=== PATIENT | female | born 1960 | race American Indian/Alaskan Native ===

== ENCOUNTER 2017-08-26 10:33 | Emergency (ER) | payer OTHER ==
[~2017-08-26] VITALS: Ht 165.1 cm; Wt 59.0 kg
[~2017-08-26 10:33] MED LIST: ACET325 PO; DIVA250ER PO; DONE5 PO; DULO60 PO; FAMO20 PO; GABA400 PO; IBUP600 PO; LEVE500 PO; LISI20 PO; OLAN5 PO; PHENY100ER PO; PHENYTOIN SODI300 MG PO; THIA100 PO
[2017-08-26 10:50] LABS: Calcium, Ionized (POC) 1.14 mmol/L (1.10-1.46); Chloride (POC) 102 mmol/L (98-108); Creatinine (POC) 0.5 mg/dL (0.6-1.0); Glucose (ISTAT POC) 142 mg/dL (70-99); Hemoglobin (POC) 14.6 g/dL (12.0-16.0); Potassium (POC) 3.6 mmol/L (3.5-5.5); Sodium (POC) 141 mmol/L (135-148); Total CO2 (POC) 26 mmol/L (21-32)
== END 2017-08-26 12:40 | disposition home or self-care (01) ==
LOC: ER 10:33
PROVIDERS: Emergency Medicine
DX: G40.909 Epilepsy, unspecified, not intractable, without status epilepticus (principal); F17.210 Nicotine dependence, cigarettes, uncomplicated; G30.9 Alzheimer's disease, unspecified; F02.80 Dementia in other diseases classified elsewhere, unspecified severity, without behavioral disturbance, psychotic disturbance, mood disturbance, and anxiety; Z79.899 Other long term (current) drug therapy
CPT/HCPCS: 80047; 81000; 85014; 96360; 99284-25; J7030

== ENCOUNTER 2018-01-27 10:44 | Inpatient (IN) | payer OTHER ==
[~2018-01-27] VITALS: Ht 172.7 cm; Wt 46.4 kg
[2018-01-27 11:10] LABS: BASOPHILS ABSOLUTE AUTO 0.02 K/mm3 (0.00-0.23); BASOPHILS PERCENT AUTO 0 % (0-2); EOSINOPHILS ABSOLUTE AUTO 0.05 K/mm3 (0.00-0.68); EOSINOPHILS PERCENT AUTO 1 % (0-6); Hematocrit 38.3 % (33.0-51.0); Hemoglobin 12.9 g/dL (11.5-16.0); IMMATURE GRAN ABSOLUTE AUTO 0.03 K/mm3 (0.00-0.10); IMMATURE GRAN PERCENT AUTO 1 % (0-1); LYMPHOCYTES PERCENT AUTO 15 % (21-46); MONOCYTES ABSOLUTE AUTO 0.38 K/mm3 (0.16-1.47); MONOCYTES PERCENT AUTO 7 % (4-13); Mean Corpuscular HGB 33.8 pg (26.0-34.0); Mean Corpuscular HGB Conc 33.7 g/dL (31.5-36.5); Mean Corpuscular Volume 100 fL (80-100); Mean Platelet Volume 9.2 fL (9.1-12.4); NEUTROPHILS ABSOLUTE AUTO 3.96 K/mm3 (1.96-9.15); NEUTROPHILS PERCENT AUTO 75 % (41-73); Platelet Count 79 K/mm3 (150-400); RDW Standard Deviation 44.4 fL (35.1-46.3); Red Blood Cell Count 3.82 M/mm3 (3.80-5.20); White Blood Cell Count 5.24 K/mm3 (4.00-11.30)
[2018-01-27 11:19] LABS: International Normalized Ratio 1.14; Prothrombin Time Results 11.7 Sec (9.7-11.5)
[2018-01-27 11:29] LABS: CPK Creatine Kinase 110 U/L (26-193); Creatine Kinase MB Index 0.9 (0.0-4.0); Troponin I 0.194 ng/mL (0.000-0.040)
[2018-01-27 11:30] LABS: Alanine Aminotransfer (ALT/SGP 27 U/L (12-78); Albumin, Blood 3.1 g/dL (3.4-5.0); Albumin/Globulin Ratio 0.8 (0.8-1.8); Alk Phos 128 U/L (50-136); Anion Gap 11 mmol/L (6-16); Aspartate Aminotrans (AST/SGOT 39 U/L (12-37); Bilirubin, Total 0.4 mg/dL (0.1-1.0); Blood Urea Nitrogen 6 mg/dL (8-24); Bun/Creatinine Ratio 10.6 (12.0-20.0); CO2, Blood 25 mmol/L (21-32); Chloride, Blood 106 mmol/L (98-108); Creatinine, Blood 0.57 mg/dL (0.40-1.00); Globulin, Blood 4.1 g/dL (2.2-4.0); Glomerular Filtration Rate >60 (60-); Glucose, Blood 141 mg/dL (70-99); Potassium, Blood 3.7 mmol/L (3.5-5.5); Sodium, Blood 142 mmol/L (136-145); Total Protein, Blood 7.2 g/dL (6.4-8.2)
[2018-01-27 11:36] LABS: Dilantin (Phenytoin), Total 2.7 ug/mL (10.0-20.0)
[2018-01-27 11:50] LABS: Ethanol (Alcohol), Blood, Med <3 mg/dL
[2018-01-27 13:09] LABS: Source, Urine Clean Catch
[2018-01-27 13:18] LABS: Bilirubin, Urine Neg (Neg); Blood, Urine 1+ (Neg); Glucose Qualitative, Urine Neg (Neg); Ketones, Urine Neg (Neg); Leukocyte Esterase, Urine Neg (Neg); Nitrite, Urine Neg (Neg); Protein, Urine 2+ (Neg); Urobilinogen, Urine NORM (Normal)
[2018-01-27 13:41] LABS: U Amphetamine Screen Not Detected; U Barbituate Screen DETECTED; U Benzodiazapine Screen Not Detected; U Buprenorphine Screen Not Detected; U Cannabinoids Screen DETECTED; U Cocaine Screen Not Detected; U Methadone Screen Not Detected; U Methamphetamine Screen Not Detected; U Opiates Screen Not Detected; U Oxycodone Screen Not Detected; U Phencyclidine Screen Not Detected; U Propoxyphene Screen Not Detected
[2018-01-27 13:42] LABS: Appearance, Urine Clear (Clear); Color, Urine Yellow (P-Yellow)
[2018-01-27 13:44] LABS: Bacteria Not Seen /hpf; Squamous Epithelial Cells Few /hpf (Few); White Blood Cells, Urine Rare /hpf (0-5)
[2018-01-27 13:45] LABS: Hyaline Casts Rare /lpf (0-2)
[2018-01-27 15:33] LABS: Creatine Kinase MB 4.6 ng/mL (0.0-3.6); Creatine Kinase MB Index 1.3 (0.0-4.0)
[2018-01-27 15:41] LABS: Thyroid Stimulating Hormone 1.93 uIU/mL (0.360-4.800)
[2018-01-27 15:46] LABS: Troponin I 1.1 ng/mL (0.000-0.040)
[2018-01-27] MEDS ORDERED: DIVA125 PO (17:25)
[2018-01-27] MEDS ORDERED: DIVA500ER PO (17:27)
--- NOTE | 2018-01-27 19:57 | NUR ---
SHIFT SUMMARY: Pt arrived to room PCU 2 at around 1700. Pt was very tearful and fearful. Crying and asking for her son. Explained that he was just outside the room at that time. LS were clear. HR was reg. BT were positive. pulses palp. Pt C/O horrible NORWOOD, stomach ache and like she was going to throw up. Medicated with zofran at that time and IVF were hung. Pt and her sone were oriented to room and unit. Seizure pads were placed on bed and bed alarm on. Pt dowsing on and off. When awake she is crying and confused, difficult to calm. Pt also running a temp at arrival to room of 100.9. Had heat turned down and removed multiple blankets from bed. Pt continues to ask for a warm blanket, stating that "I'm cold". Pt was given tylenol in ER with will continue to monitor and treat temp. Report was given to night RN.
--- NOTE | 2018-01-27 20:03 | NUR ---
CARE ASSUMPTION PT ALERT TO SELF AND FAMILY, UNABLE TO STATE MONTH AND YEAR OR TELL ME WHAT HAPPENED. SHE STATES "IN THE HOSPITAL" WHEN ASKED IF SHE KNOWS WHERE SHE IS, BUT THEN MOMENTS LATER ASKS "WHERE AM I?" PT ALERT W/ CONFUSION. PT ABLE TO MOVE ALL EXTREMITIES, BILAT HAND INFORMATION ASSURANCE ENGINEER EQUAL, BUT PT HANDS SHAKING WHEN ASKED TO GRASP MY HANDS. PT TEMP 100.2 ON ASSESSMENT. TEMP TURNED DOWN IN ROOM AND PT WEARING SHEET ONLY. LUNG SOUNDS CLEAR ON L SIDE, COARSE ON R SIDE. SPO2 > 92% ON RA. MONITOR SHOWS NSR, HR 70'S. SIDE RAILS UP X2, SEIZURE PADS ON BED. PT ON BEDREST, USING BEDPAN. CALL LIGHT IN REACH. BED ALARM ON. WILL CONTINUE TO MONITOR AND PROVIDE CARE.
[2018-01-27 23:23] LABS: Creatine Kinase MB 6.5 ng/mL (0.0-3.6); Creatine Kinase MB Index 0.9 (0.0-4.0)
[2018-01-27 23:28] LABS: Troponin I 1.13 ng/mL (0.000-0.040)
--- NOTE | 2018-01-28 06:30 | NUR ---
SHIFT SUMMARY PT ORIENTED TO SELF AND FAMILY, IN AND OUT OF ORIENTATION TO SURROUNDINGS, UNAWARE OF DATE/TIME. PT VERY ANXIOUS AND TEARFUL T/O SHIFT W/ MOMENTS OF CALM AND SLEEP AFTER ATIVAN GIVEN PER EMAR. PT C/O FEELING HOT AND COLD T/O SHIFT, ASKING FOR BLANKETS, STATING STAFF NOT DOING ANYTHING FOR HER. PT REASSURED OF STAFF CARING FOR HER, AND EXPLAINED TO THE PT THE LACK OF EXTRA BLANKETS D/T HER HAVING AN ELEVATED TEMP. ELEVATED TEMP SUCCESSFULLY DECREASED W/ TYLENOL PER EMAR. PT THEN PROVIDED W/ EXTRA BLANKETS ONCE TEMP REDUCED. ONE EPISODE OF SEVERE CONFUSION, LOSS OF RECALL FOR WHAT WAS HAPPENING TO HER, AND HIGH EMOTIONS, PT STATED WANTING TO , SAYING SHE DIDN'T FEEL LIKE HERSELF ANYMORE. TIME SPENT DISCUSSING THIS W/ PT AND MATERIAL HANDLING SUPERVISOR CALLED INTO ROOM TO FURTHER ASSESS PT. PT REFUSED TO ANSWER ANY SUICIDAL IDEATION QUESTIONS. AFTER FUTHER TIME SPENT, PT BECAME CALM, CONVERSING WITH MATERIAL HANDLING SUPERVISOR, LAUGHING EVEN. WILL PASS THIS ON TO DAY SHIFT RN W/ INTENT TO FURTHER ASSESS AND RE-EVALUATE PT'S SI. OTHERWISE VSS. SEIZURE PADS REMAIN ON SIDE RAILS OF BED, WITH NO SEIZURE-LIKE ACTIVITY T/O SHIFT. BED ALARM ON. SBA TO BSC. WILL CONTINUE TO MONITOR AND PROVIDE CARE UNTIL REPORT OFF TO ONCOMING DAY SHIFT RN.
[2018-01-28 07:07] LABS: BASOPHILS ABSOLUTE AUTO 0.03 K/mm3 (0.00-0.23); BASOPHILS PERCENT AUTO 1 % (0-2); EOSINOPHILS ABSOLUTE AUTO 0.01 K/mm3 (0.00-0.68); EOSINOPHILS PERCENT AUTO 0 % (0-6); Hematocrit 35.1 % (33.0-51.0); Hemoglobin 11.7 g/dL (11.5-16.0); IMMATURE GRAN ABSOLUTE AUTO 0.03 K/mm3 (0.00-0.10); IMMATURE GRAN PERCENT AUTO 1 % (0-1); LYMPHOCYTES ABSOLUTE AUTO 1.88 K/mm3 (0.84-5.20); LYMPHOCYTES PERCENT AUTO 29 % (21-46); MONOCYTES ABSOLUTE AUTO 0.56 K/mm3 (0.16-1.47); MONOCYTES PERCENT AUTO 9 % (4-13); Mean Corpuscular HGB Conc 33.3 g/dL (31.5-36.5); Mean Corpuscular Volume 99 fL (80-100); Mean Platelet Volume 9.2 fL (9.1-12.4); NEUTROPHILS ABSOLUTE AUTO 4.09 K/mm3 (1.96-9.15); NEUTROPHILS PERCENT AUTO 62 % (41-73); Platelet Count 89 K/mm3 (150-400); RDW Coefficient Variation 11.9 % (11.7-14.2); RDW Standard Deviation 43.5 fL (35.1-46.3); Red Blood Cell Count 3.55 M/mm3 (3.80-5.20)
[2018-01-28 07:23] LABS: Alanine Aminotransfer (ALT/SGP 25 U/L (12-78); Albumin, Blood 2.9 g/dL (3.4-5.0); Albumin/Globulin Ratio 0.8 (0.8-1.8); Alk Phos 81 U/L (50-136); Anion Gap 6 mmol/L (6-16); Aspartate Aminotrans (AST/SGOT 46 U/L (12-37); Bilirubin, Total 0.6 mg/dL (0.1-1.0); Blood Urea Nitrogen 7 mg/dL (8-24); Bun/Creatinine Ratio 11.6 (12.0-20.0); CO2, Blood 27 mmol/L (21-32); Calcium, Blood 8.1 mg/dL (8.5-10.1); Chloride, Blood 110 mmol/L (98-108); Creatinine, Blood 0.61 mg/dL (0.40-1.00); Globulin, Blood 3.6 g/dL (2.2-4.0); Glomerular Filtration Rate >60 (60-); Glucose, Blood 87 mg/dL (70-99); Potassium, Blood 4.1 mmol/L (3.5-5.5); Sodium, Blood 143 mmol/L (136-145); Total Protein, Blood 6.5 g/dL (6.4-8.2)
[2018-01-28 07:26] LABS: Creatine Kinase MB 4.9 ng/mL (0.0-3.6); Creatine Kinase MB Index 0.9 (0.0-4.0)
[2018-01-28 07:44] LABS: Troponin I 1.24 ng/mL (0.000-0.040)
--- NOTE | 2018-01-28 18:42 | NUR ---
END OF SHIFT PT HAS HAD NO CHANGES TO THE ASSESSENT, VSS, PT HAS NO PAIN AT THIS TIME, PT HAS HAD MOOD SWINGS WITH MOMENTS OF CLEARITY, PT HAS BEEN EDUCATED TO THE PLAN AND FAMILY NOTIFIED OF POSSIBLE DC IN THE MORNING
--- NOTE | 2018-01-29 05:34 | NUR ---
END OF SHIFT SUMMARY: PATIENT MUCH MORE PLEASANT THIS SHIFT, USING CALL LIGHT APPROPRIATLY AND COOPERATIVE WITH CARE. X2 EPISODES OF TEARFULNESS WHEN SHE AWOKE AND WAS COLD AND MOIST D/T SWEATING, AFEBRILE AND ALL OTHER VSS FOR ENTIRE SHIFT. NO SEIZURE ACTIVITY NOTED AND POST ICTAL CONFUSION APPEARS TO BE IMPROVING, NO MORE LEFT SIDED WEAKNESS PER PATIENT. CONTINUOUS NORWOOD NOTED AND TREATED PER MD ORDERS. NO OTHER ISSUES NOTED, CALL LIGHT WIHTIN REACH, BED LOW AND LOCKED WITH BED EXIT ALARM ON. ASSESSMENT, MONITORING AND TREATMENTS IMPLEMENTED PER MD ORDERS AND SCOPE OF PRACTICE.
--- NOTE | 2018-01-29 09:28 | NUR ---
Update: Rudi in HC called to notify that the HC would be unable to complete stress test today d/t all slots being full. Notified Dr. Dai, and he stated that it is okay to complete stress test tomorrow. HC scheduling stress test for tomorrow 01/30/18.
--- NOTE | 2018-01-29 10:31 | NUR ---
Assumed Care: Assumed care of pt at approx 0700. VSS. In no apparent sign of distress. Pt is A&Ox4 at this time, but shift coordinator RN reports that pt wakes up disoriented after sleeping. Pt was awake and appropriate upon entering room. C/o of mild headache and pt recently received PO tylenol. Pt unable to recall events of being a missing person recently or seizure. Pt states that she does not have a history of seizure or HTN. Held PO atenolol this AM d/t HR in the 50's. Denies any CP. Bed alarm on. Lungs clear and breathing e/u on RA. Pt states that she was not feeling very good this AM and had mild nausea. Received shower and states that she is now feeling much better. Pt currently resting in bed with call light within reach. Denies any further questions, complaints or requests at this time. Will continue to monitor. Transfer: Called report to receiving YESI Brandon on surgical floor. Pt transferred to room 214 at 1020. VSS. In no apparent sign of distress. Pt educated on transfer and denies any questions or complaints.
--- NOTE | 2018-01-29 10:39 | NUR ---
pt arrived to room 214 from pcu pt oriented to room req we turn the heat to 75 stated she has been getting hot and cold currently not sweating but cold no shivering noted.
--- NOTE | 2018-01-29 14:41 | NUR ---
Daniella in bed resting reports doing much better ,encouraged pt and prayed for her.
--- NOTE | 2018-01-29 16:13 | NUR ---
DR MOY CALLED IVF SL PT EATING WELL AND VOIDING ASSISTED TO BATHROOM EARLIER TO VOID WITHOUT DIFFICULTY PT STATED HER STRENGTH IS BETTER
--- NOTE | 2018-01-29 17:38 | NUR ---
PT EATING DINNER PT'S SON AT BEDSIDE DISCUSSED HER MED GIVEN IN HOSP
--- NOTE | 2018-01-30 06:07 | NUR ---
SHIFT SUMMARY: PT HAS SLEPT MOST OF SHIFT. OCCASIONALLY WAKES UP DISORIENTED AND TEARFUL. REPORTS NOT KNOWING SURROUNDINGS, DATE/TIME AND WHAT HAS HAPPENED. WAKES UP DIAPHORETIC AND STATES FEELING COLD. AFEBRILE THROUGHOUT SHIFT. NO SEIZURE ACTIVITY NOTED. SEIZURE PRECAUTIONS IN PLACE. BED ALARM ON FOR SAFETY. SBA TO BATHROOM. SALINE LOCKED.
--- NOTE | 2018-01-30 12:59 | NUR ---
Call to Dr. Huddleston regarding pending discharge and received orders; he states that due to the pt's mitral regurgitation, as well as past non-compliance issues, he would like to have a RAJESH done as an inpatient. Therefore, the discharge will be on hold until RAJESH is completed. This was communicated to the pt and to her son, Filiberto, who is here at this time.
--- NOTE | 2018-01-30 18:23 | NUR ---
This afternoon the pt reports that she has no headache, and that her upper abdominal pain is also better. She has had a decent appetite, mostly for toast and juice. Stress test was done. Her son Quan was called this evening to let him know that the ribbon inker is planning to do the RAJESH on Thursday, so the pt will be staying over the weekend. The pt is cooperative, upset at times when she awakens and cannot remember where she is or what is going on, but she responds well to reassurance and explainations and reorientation. Sinus bradycardia/ normal sinus rhythm per night monitor.
--- NOTE | 2018-01-31 06:10 | NUR ---
SHIFT SUMMARY PT A&OX4 FOR MOST OF SHIFT. PT WOKE IN EARLY AM UNSURE OF LOCATION AND EVENT BUT RECOGNIZE SHE WAS IN A HOSPITAL AND COULD REMEMBER VISITORS FROM THE PRIOR EVENING AND REORIENTED. PT REFUSED SCD'S EDUCATION ON BLOOD CLOT PREVENTION PROVIDED BY RN AND SUPERINTENDENT WAREHOUSE. PT DENIED PAIN, NAUSEA, CP AND SOB DURING SHIFT. PT UP TO TOILET, VOIDING WELL. TOLERATING PO INTAKE. BED ALARM AND SIDE RAILS FOR SAFETY. TELEMETRY IN PLACE; SB PER COMPUTER SYSTEMS ARCHITECT. CALL LIGHT IN REACH. WCTM UNTIL REPORT TO DAY SHIFT RN.
--- NOTE | 2018-01-31 07:59 | NUR ---
PT REPORTS AWARE IN HOSPITAL "JUST NOT SURE WHY, WHEN I CAME IN HERE, OR EVEN WHERE I LIVE". PT REPORTS DRINKING LOTS OF WATER, REPORTS EPIGASTRIC PAIN, THEN BREAKFEAST. REPORTS PASSING LOTS OF GAS.
--- NOTE | 2018-01-31 08:28 | NUR ---
DISCUSSED PT'S STATUS WITH DR MOY.
--- NOTE | 2018-01-31 12:53 | NUR ---
NEURO CHECK REMAIN SAME PREVIOUS NOTE.
--- NOTE | 2018-01-31 13:56 | NUR ---
FAMILY/FRIEND IN ROOM.
--- NOTE | 2018-01-31 16:27 | NUR ---
SHIFT SUMMARY PT EATING AND DRINKING. VOIDING. PT FAMILY/FRIEND EARLIER TODAY AND VISITED WITH PT. PT NEURO CHECKS REMAIN SAME (SEE N.N.). PT BEEN ASSISTED WITH ADL'S PRN. PT MOVING SELF WELL.
--- NOTE | 2018-01-31 17:18 | NUR ---
assumed care of patient at this time.
--- NOTE | 2018-01-31 17:25 | NUR ---
REPORT GIVEN TO OTHER YESI Ramos WHO IS TAKING OVER CARE AT THIS TIME.
[2018-02-01 04:40] LABS: Hematocrit 36.1 % (33.0-51.0); Hemoglobin 12.6 g/dL (11.5-16.0); Mean Corpuscular HGB Conc 34.9 g/dL (31.5-36.5); Mean Corpuscular Volume 97 fL (80-100); Mean Platelet Volume 9.7 fL (9.1-12.4); Platelet Count 74 K/mm3 (150-400); RDW Coefficient Variation 11.7 % (11.7-14.2); RDW Standard Deviation 41.3 fL (35.1-46.3); Red Blood Cell Count 3.71 M/mm3 (3.80-5.20); White Blood Cell Count 3.34 K/mm3 (4.00-11.30)
--- NOTE | 2018-02-01 07:25 | NUR ---
PATIENT TO [facility] FOR [facility] AT THIS TIME.
--- NOTE | 2018-02-01 07:47 | NUR ---
SHIFT SUMMARY PT ALERT T/O SHIFT. PT A&O X4 AT START OF SHIFT. PT CONTINUED TO WAKE DISORIENTED T/O NIGHT, SOMTIMES CRYING; REORIENTED WELL WITH CUES. PT UP TO TOILET. REFUSED SCD'S TO BLE'S. NPO POST MIDNIGHT. LS CLEAR. PT DENIES SOB AND CP; TELEMETRY IN PLACE, SB PER VISUAL DISPLAY MANAGER. REPORT GIVEN TO DAY SHIFT RN.
--- NOTE | 2018-02-01 10:00 | NUR ---
PATIENT RETURNED TO ROOM FROM RAJESH. NO NEW ORDERS. F/U WITH INDIVIDUAL SMALL GROUP INSTRUCTOR OP. DR MOY INFORMED.
--- NOTE | 2018-02-01 12:42 | NUR ---
PATIENT D/C'D HOME AT THIS TIME W/SON; BOTH STATE UNDERSTANDING OF MEDS, F/U APPTS W/ PCP, CARDIOLOGY, NEUROLOGY, ETC. NO ACUTE CHANGES OR C/O.
--- NOTE | 2018-02-01 14:52 | NUR ---
Met pt sitting up in his bed dylan Saldana , pt. reportsmdoing muchn better and may go home today or mago prayed for the pt.
== END 2018-02-01 12:42 | disposition home health service (06) | DRG 101 ==
LOC: ER 10:44 → PCU 10:45 → SURS 01-29 10:27
PROVIDERS: Emergency Medicine; Internal Medicine; ADMIT Family Medicine
PROC: 4A02XM4 Measurement of Cardiac Total Activity, External Approach (ICD-10-PCS; principal; 2018-01-28)
PROC: B246ZZ4 Ultrasonography of Right and Left Heart, Transesophageal (ICD-10-PCS; 2018-01-28)
DX: G40.901 Epilepsy, unspecified, not intractable, with status epilepticus (principal); E87.2 Acidosis; R47.01 Aphasia; D61.818 Other pancytopenia; F17.210 Nicotine dependence, cigarettes, uncomplicated; F19.10 Other psychoactive substance abuse, uncomplicated; G83.84 Todd's paralysis (postepileptic); W18.30XA Fall on same level, unspecified, initial encounter; Z91.14 Patient's other noncompliance with medication regimen; F03.90 Unspecified dementia, unspecified severity, without behavioral disturbance, psychotic disturbance, mood disturbance, and anxiety; I34.0 Nonrheumatic mitral (valve) insufficiency
CPT/HCPCS: 36415; 70450; 70496; 71046; 78452; 80053; 80185; 81001; 82550; 82553; 83605; 83735; 84443; 84484; 85025; 85027; 85610; 87040; 93005; 93010; 93017; 93306; 93312; 93325; 96361; 96365; 96375; 99285-25; A9500; G0378; G0480; J0706; J1165; J2060; J2250; J2405; J2785; J3010; J7030; Q9967

== ENCOUNTER 2018-02-11 17:20 | Observation (INO) | payer OTHER ==
[~2018-02-11] VITALS: Ht 160 cm; Wt 48.1 kg
[~2018-02-11 17:20] MED LIST changes: +DIVA125 PO; +DIVA500ER PO
[2018-02-11 18:29] LABS: Source, Urine Clean Catch
[2018-02-11 18:30] LABS: BASOPHILS ABSOLUTE AUTO 0.04 K/mm3 (0.00-0.23); BASOPHILS PERCENT AUTO 1 % (0-2); EOSINOPHILS PERCENT AUTO 1 % (0-6); Hematocrit 44.4 % (33.0-51.0); Hemoglobin 15.2 g/dL (11.5-16.0); IMMATURE GRAN ABSOLUTE AUTO 0.03 K/mm3 (0.00-0.10); IMMATURE GRAN PERCENT AUTO 0 % (0-1); LYMPHOCYTES ABSOLUTE AUTO 2.54 K/mm3 (0.84-5.20); LYMPHOCYTES PERCENT AUTO 37 % (21-46); MONOCYTES PERCENT AUTO 9 % (4-13); Mean Corpuscular HGB 33.4 pg (26.0-34.0); Mean Corpuscular HGB Conc 34.2 g/dL (31.5-36.5); Mean Corpuscular Volume 98 fL (80-100); Mean Platelet Volume 8.6 fL (9.1-12.4); NEUTROPHILS ABSOLUTE AUTO 3.65 K/mm3 (1.96-9.15); NEUTROPHILS PERCENT AUTO 53 % (41-73); Platelet Count 109 K/mm3 (150-400); RDW Coefficient Variation 11.6 % (11.7-14.2); RDW Standard Deviation 42.2 fL (35.1-46.3); Red Blood Cell Count 4.55 M/mm3 (3.80-5.20); White Blood Cell Count 6.96 K/mm3 (4.00-11.30)
[2018-02-11 18:57] LABS: U Amphetamine Screen Not Detected; U Barbituate Screen DETECTED; U Benzodiazapine Screen Not Detected; U Buprenorphine Screen Not Detected; U Cannabinoids Screen DETECTED; U Cocaine Screen Not Detected; U Methadone Screen Not Detected; U Methamphetamine Screen Not Detected; U Opiates Screen Not Detected; U Oxycodone Screen Not Detected; U Phencyclidine Screen Not Detected; U Propoxyphene Screen Not Detected
[2018-02-11 19:06] LABS: Bilirubin, Urine Neg (Neg); Blood, Urine 2+ (Neg); Glucose Qualitative, Urine Neg (Neg); Ketones, Urine Neg (Neg); Leukocyte Esterase, Urine 1+ (Neg); Nitrite, Urine Neg (Neg); Protein, Urine 2+ (Neg); Urobilinogen, Urine 2+ (Normal)
[2018-02-11 19:08] LABS: Alanine Aminotransfer (ALT/SGP 39 U/L (12-78); Albumin, Blood 3.9 g/dL (3.4-5.0); Albumin/Globulin Ratio 0.9 (0.8-1.8); Alk Phos 118 U/L (50-136); Anion Gap 8 mmol/L (6-16); Aspartate Aminotrans (AST/SGOT 43 U/L (12-37); Bilirubin, Total 0.4 mg/dL (0.1-1.0); Blood Urea Nitrogen 7 mg/dL (8-24); CO2, Blood 26 mmol/L (21-32); Calcium, Blood 8.8 mg/dL (8.5-10.1); Chloride, Blood 101 mmol/L (98-108); Creatinine, Blood 0.64 mg/dL (0.40-1.00); Ethanol (Alcohol), Blood, Med <3 mg/dL; Free Thyroxine 0.86 ng/dL (0.70-1.60); Globulin, Blood 4.5 g/dL (2.2-4.0); Glomerular Filtration Rate >60 (60-); Glucose, Blood 94 mg/dL (70-99); Potassium, Blood 4.3 mmol/L (3.5-5.5); Salicylate 1.9 mg/dL (2.8-20.0); Sodium, Blood 135 mmol/L (136-145); Total Protein, Blood 8.4 g/dL (6.4-8.2)
[2018-02-11 19:13] LABS: Acetaminophen, Random <2.0 ug/mL (10.0-30.0)
[2018-02-11 19:20] LABS: Appearance, Urine Clear (Clear); Color, Urine Yellow (P-Yellow)
[2018-02-11 19:23] LABS: Bacteria Few /hpf; Squamous Epithelial Cells Few /hpf (Few)
[2018-02-11 20:59] LABS: Dilantin (Phenytoin), Total 6.9 ug/mL (10.0-20.0); Valproic Acid 67.9 ug/mL (50.0-100.0)
== END 2018-02-12 16:46 | disposition home or self-care (01) ==
LOC: ER 17:20 → EOR 17:21
PROVIDERS: ADMIT Emergency Medicine
DX: R45.851 Suicidal ideations (principal); F32.9 Major depressive disorder, single episode, unspecified; F17.210 Nicotine dependence, cigarettes, uncomplicated; F10.10 Alcohol abuse, uncomplicated; Z79.899 Other long term (current) drug therapy
CPT/HCPCS: 36415; 80053; 80164; 80185; 81001; 81025; 84439; 84443; 85025; 87086; 99285; G0378; G0480

== ENCOUNTER 2018-03-03 13:26 | Observation (INO) | payer OTHER ==
[~2018-03-03] VITALS: Ht 160 cm; Wt 54.4 kg
[2018-03-03] MEDS ORDERED: TRAZ50 PO (14:42)
[2018-03-03 15:02] LABS: Source, Urine Clean Catch
[2018-03-03 15:02] LABS: BASOPHILS ABSOLUTE AUTO 0.03 K/mm3 (0.00-0.23); BASOPHILS PERCENT AUTO 1 % (0-2); EOSINOPHILS ABSOLUTE AUTO 0.05 K/mm3 (0.00-0.68); EOSINOPHILS PERCENT AUTO 1 % (0-6); Hematocrit 39.7 % (33.0-51.0); Hemoglobin 13.5 g/dL (11.5-16.0); IMMATURE GRAN ABSOLUTE AUTO 0.02 K/mm3 (0.00-0.10); IMMATURE GRAN PERCENT AUTO 0 % (0-1); LYMPHOCYTES ABSOLUTE AUTO 1.37 K/mm3 (0.84-5.20); LYMPHOCYTES PERCENT AUTO 21 % (21-46); MONOCYTES ABSOLUTE AUTO 0.49 K/mm3 (0.16-1.47); MONOCYTES PERCENT AUTO 8 % (4-13); Mean Corpuscular HGB 32.5 pg (26.0-34.0); Mean Corpuscular Volume 96 fL (80-100); NEUTROPHILS ABSOLUTE AUTO 4.46 K/mm3 (1.96-9.15); NEUTROPHILS PERCENT AUTO 70 % (41-73); Platelet Count 104 K/mm3 (150-400); RDW Coefficient Variation 11.6 % (11.7-14.2); Red Blood Cell Count 4.15 M/mm3 (3.80-5.20); White Blood Cell Count 6.42 K/mm3 (4.00-11.30)
[2018-03-03 15:06] LABS: Blood, Urine 2+ (Neg); Glucose Qualitative, Urine Neg (Neg); Ketones, Urine 2+ (Neg); Leukocyte Esterase, Urine 1+ (Neg); Nitrite, Urine Neg (Neg); Protein, Urine 2+ (Neg); Specific Gravity, Urine 1.015 (1.003-1.022); Urobilinogen, Urine 3+ (Normal)
[2018-03-03 15:16] LABS: Alanine Aminotransfer (ALT/SGP 34 U/L (12-78); Albumin, Blood 3.6 g/dL (3.4-5.0); Albumin/Globulin Ratio 0.9 (0.8-1.8); Alk Phos 109 U/L (50-136); Anion Gap 7 mmol/L (6-16); Aspartate Aminotrans (AST/SGOT 45 U/L (12-37); Bilirubin, Total 0.6 mg/dL (0.1-1.0); Blood Urea Nitrogen 10 mg/dL (8-24); Bun/Creatinine Ratio 15.8 (12.0-20.0); CO2, Blood 29 mmol/L (21-32); Calcium, Blood 8.5 mg/dL (8.5-10.1); Chloride, Blood 105 mmol/L (98-108); Creatinine, Blood 0.63 mg/dL (0.40-1.00); Ethanol (Alcohol), Blood, Med <3 mg/dL; Globulin, Blood 4.2 g/dL (2.2-4.0); Glomerular Filtration Rate >60 (60-); Glucose, Blood 95 mg/dL (70-99); Potassium, Blood 3.7 mmol/L (3.5-5.5); Sodium, Blood 141 mmol/L (136-145); Total Protein, Blood 7.8 g/dL (6.4-8.2)
[2018-03-03 15:18] LABS: U Amphetamine Screen Not Detected; U Barbituate Screen DETECTED; U Benzodiazapine Screen Not Detected; U Buprenorphine Screen Not Detected; U Cannabinoids Screen DETECTED; U Cocaine Screen Not Detected; U Methadone Screen Not Detected; U Methamphetamine Screen Not Detected; U Opiates Screen Not Detected; U Oxycodone Screen Not Detected; U Phencyclidine Screen Not Detected; U Propoxyphene Screen Not Detected
[2018-03-03 15:21] LABS: Thyroid Stimulating Hormone 0.548 uIU/mL (0.360-4.800)
[2018-03-03 15:34] LABS: Appearance, Urine Hazy (Clear); Bilirubin, Urine 1+ (Neg); Color, Urine Amber (P-Yellow)
[2018-03-03 15:35] LABS: White Blood Cells, Urine 0-2 /hpf (0-5)
[2018-03-03 15:36] LABS: Bacteria Few /hpf; Squamous Epithelial Cells Rare /hpf (Few)
[2018-03-03 15:37] LABS: Mucus Mod ({null, 0-Heavy})
[2018-03-03 16:04] LABS: Dilantin (Phenytoin), Total 7.1 ug/mL (10.0-20.0); Valproic Acid 93.1 ug/mL (50.0-100.0)
[2018-03-05 19:21] LABS: Valproic Acid 65.8 ug/mL (50.0-100.0)
== END 2018-03-07 13:59 | disposition home or self-care (01) ==
LOC: ER 13:26 → EOR 13:27
PROVIDERS: Psychiatry & Neurology Psychiatry; ADMIT Emergency Medicine
DX: F32.9 Major depressive disorder, single episode, unspecified (principal); F41.9 Anxiety disorder, unspecified; F03.90 Unspecified dementia, unspecified severity, without behavioral disturbance, psychotic disturbance, mood disturbance, and anxiety; F12.90 Cannabis use, unspecified, uncomplicated; F17.210 Nicotine dependence, cigarettes, uncomplicated; Z79.899 Other long term (current) drug therapy
CPT/HCPCS: 36415; 80053; 80164; 80185; 81001; 84443; 85025; 87086; 99285; G0378; G0480

== ENCOUNTER 2018-04-30 16:26 | Inpatient (IN) | payer OTHER ==
[~2018-04-30] VITALS: Ht 157.5 cm; Wt 50.1 kg
[~2018-04-30 16:26] MED LIST changes: +TRAZ50 PO
[2018-04-30 17:47] LABS: BASOPHILS ABSOLUTE AUTO 0.02 K/mm3 (0.00-0.23); BASOPHILS PERCENT AUTO 0 % (0-2); EOSINOPHILS ABSOLUTE AUTO 0.05 K/mm3 (0.00-0.68); EOSINOPHILS PERCENT AUTO 1 % (0-6); Hemoglobin 15.9 g/dL (11.5-16.0); IMMATURE GRAN ABSOLUTE AUTO 0.05 K/mm3 (0.00-0.10); IMMATURE GRAN PERCENT AUTO 1 % (0-1); LYMPHOCYTES ABSOLUTE AUTO 1.97 K/mm3 (0.84-5.20); LYMPHOCYTES PERCENT AUTO 19 % (21-46); MONOCYTES ABSOLUTE AUTO 1.04 K/mm3 (0.16-1.47); MONOCYTES PERCENT AUTO 10 % (4-13); Mean Corpuscular HGB 32.6 pg (26.0-34.0); Mean Corpuscular HGB Conc 35.3 g/dL (31.5-36.5); Mean Corpuscular Volume 92 fL (80-100); Mean Platelet Volume 9.2 fL (9.1-12.4); NEUTROPHILS ABSOLUTE AUTO 7.09 K/mm3 (1.96-9.15); NEUTROPHILS PERCENT AUTO 69 % (41-73); Platelet Count 104 K/mm3 (150-400); RDW Coefficient Variation 12.1 % (11.7-14.2); RDW Standard Deviation 41.4 fL (35.1-46.3); Red Blood Cell Count 4.88 M/mm3 (3.80-5.20); White Blood Cell Count 10.22 K/mm3 (4.00-11.30)
[2018-04-30 18:13] LABS: Alanine Aminotransfer (ALT/SGP 30 U/L (12-78); Albumin, Blood 3.8 g/dL (3.4-5.0); Albumin/Globulin Ratio 0.8 (0.8-1.8); Alk Phos 131 U/L (50-136); Anion Gap 8 mmol/L (6-16); Aspartate Aminotrans (AST/SGOT 21 U/L (12-37); Blood Urea Nitrogen 13 mg/dL (8-24); CO2, Blood 26 mmol/L (21-32); Calcium, Blood 9.1 mg/dL (8.5-10.1); Chloride, Blood 104 mmol/L (98-108); Creatinine, Blood 0.47 mg/dL (0.40-1.00); Globulin, Blood 4.9 g/dL (2.2-4.0); Glomerular Filtration Rate >60 (60-); Glucose, Blood 103 mg/dL (70-99); Potassium, Blood 3.8 mmol/L (3.5-5.5); Sodium, Blood 138 mmol/L (136-145); Total Protein, Blood 8.7 g/dL (6.4-8.2); Troponin I <0.015 ng/mL (0.000-0.040)
--- NOTE | 2018-05-01 08:39 | NUR ---
[place]
--- NOTE | 2018-05-01 08:58 | NUR ---
05/01/18 0858 Destinee Garcia PT BROUGHT IN TO PACU TO MEET WITH AND DR. FERRARI. VSS. LUNGS COARSE THROUGHOUT AND PT COUGHING UP THICK GREEN MUCUS. PT ENCOURAGED TO DEEP BREATH AND COUGH. BREATHING TREATMENT GIVEN TO PT PER DR. TALAMANTES.
--- NOTE | 2018-05-01 11:45 | NUR ---
pt arrived back to room 224 from pacu pt reports pain 6/10 cl given pt stated pain is 6/10 mild nausea offered nausea meds pt declined will give po pain meds if pt acllie coates pt has gauze to abd all but one are dry the rlq is sat sang drainage pt asked if her sister has called
--- NOTE | 2018-05-01 14:36 | NUR ---
pt son by to see pt asked if it was ok if got her lunch pt did ok on cl no nausea
--- NOTE | 2018-05-01 17:44 | NUR ---
PT EATING DINNER STATED PAIN IS BACK UP TO 6/10 PO NORCO GIVEN
--- NOTE | 2018-05-01 20:24 | NUR ---
POD 0 S/P LAP LYNNE. PT DOING VERY WELL. HAS BEEN UP AMBULATING IN HALLWAY. PAIN IS TOLERBLE, NO N/V AND TOLERATING PO. STERI STRIPS IN PLACE AND DRY DRAINAGE NOTED TO THE RIGHT LOWER QUAD GAUZE.
--- NOTE | 2018-05-02 01:17 | NUR ---
PT WAS CRYING IN ROOM C/O PAIN. DRESSING LOOKS THEM SAME, ABD IS SOFT. STATES STARTING TO PASS FLATUS. MEDICATED FOR PAIN AND EDUCATED RE INCREASING MOBILITY.
[2018-05-02 04:17] LABS: BASOPHILS ABSOLUTE AUTO 0.02 K/mm3 (0.00-0.23); BASOPHILS PERCENT AUTO 0 % (0-2); EOSINOPHILS ABSOLUTE AUTO 0.14 K/mm3 (0.00-0.68); EOSINOPHILS PERCENT AUTO 2 % (0-6); Hematocrit 36.2 % (33.0-51.0); Hemoglobin 12.4 g/dL (11.5-16.0); IMMATURE GRAN ABSOLUTE AUTO 0.02 K/mm3 (0.00-0.10); IMMATURE GRAN PERCENT AUTO 0 % (0-1); LYMPHOCYTES PERCENT AUTO 25 % (21-46); MONOCYTES ABSOLUTE AUTO 0.57 K/mm3 (0.16-1.47); MONOCYTES PERCENT AUTO 8 % (4-13); Mean Corpuscular HGB 32.3 pg (26.0-34.0); Mean Corpuscular HGB Conc 34.3 g/dL (31.5-36.5); Mean Corpuscular Volume 94 fL (80-100); Mean Platelet Volume 9.4 fL (9.1-12.4); NEUTROPHILS ABSOLUTE AUTO 4.54 K/mm3 (1.96-9.15); NEUTROPHILS PERCENT AUTO 64 % (41-73); Platelet Count 94 K/mm3 (150-400); RDW Standard Deviation 41.8 fL (35.1-46.3); Red Blood Cell Count 3.84 M/mm3 (3.80-5.20); White Blood Cell Count 7.09 K/mm3 (4.00-11.30)
--- NOTE | 2018-05-02 05:21 | NUR ---
POD 1 S/P LAP LYNNE. PT DID HAVE SOME BREAKTHROUGH PAIN DURING SHIFT. BUT THIS MORNING IS DOING MUCH BETTER. HAS ALREADY BEEN AMBULATING IN THE HALLWAYS. STATES PASSING FLATUS AND HAS BEEN TOLERATING PO. PLAN FOR DC HOME TODAY. CALL LIGHT WITHIN REACH AND WILL REPORT OFF TO NEXT SHIFT.
[2018-05-02 13:05] LABS: Alanine Aminotransfer (ALT/SGP 36 U/L (12-78); Albumin/Globulin Ratio 0.8 (0.8-1.8); Alk Phos 140 U/L (50-136); Anion Gap 5 mmol/L (6-16); Aspartate Aminotrans (AST/SGOT 60 U/L (12-37); Bilirubin, Total 0.7 mg/dL (0.1-1.0); Blood Urea Nitrogen 6 mg/dL (8-24); Bun/Creatinine Ratio 15.2 (12.0-20.0); CO2, Blood 30 mmol/L (21-32); Calcium, Blood 8.5 mg/dL (8.5-10.1); Chloride, Blood 103 mmol/L (98-108); Creatinine, Blood 0.39 mg/dL (0.40-1.00); Globulin, Blood 3.9 g/dL (2.2-4.0); Glomerular Filtration Rate >60 (60-); Glucose, Blood 98 mg/dL (70-99); Sodium, Blood 138 mmol/L (136-145); Total Protein, Blood 6.9 g/dL (6.4-8.2)
[2018-05-02] MEDS ORDERED: HYDR1TAB94 PO (15:01)
--- NOTE | 2018-05-02 15:19 | NUR ---
DC'D DC'D IV, CATHETER INTACT. REVIEWED DC PAPERWORK W/PT AND SISTER. VERBALIZED UNDERSTANDING. PT LEFT UNIT IN WC W/POSSESSIONS AND DC PAPERWORK IN HAND ACCOMPANIED BY SISTER.
== END 2018-05-02 15:24 | disposition home or self-care (01) | DRG 419 ==
LOC: ER 16:26 → SURS 16:27
PROVIDERS: Physician Assistant; ADMIT Surgery
PROC: 0FT44ZZ Resection of Gallbladder, Percutaneous Endoscopic Approach (ICD-10-PCS; principal; 2018-04-30)
PROC: 0FD Hepatobiliary System and Pancreas, Extraction (ICD-10-PCS; 2018-04-30)
PROC: BF101ZZ Fluoroscopy of Bile Ducts using Low Osmolar Contrast (ICD-10-PCS; 2018-04-30)
DX: K80.00 Calculus of gallbladder with acute cholecystitis without obstruction (principal); K76.89 Other specified diseases of liver; G30.9 Alzheimer's disease, unspecified; F02.80 Dementia in other diseases classified elsewhere, unspecified severity, without behavioral disturbance, psychotic disturbance, mood disturbance, and anxiety; F17.210 Nicotine dependence, cigarettes, uncomplicated; I10 Essential (primary) hypertension; F31.9 Bipolar disorder, unspecified; G40.901 Epilepsy, unspecified, not intractable, with status epilepticus; F10.11 Alcohol abuse, in remission; F19.11 Other psychoactive substance abuse, in remission; Z79.899 Other long term (current) drug therapy
CPT/HCPCS: 36415; 71046; 74177; 74300; 80053; 83690; 84484; 85025; 88304; 88307; 88313; 93005; 93010; 96361; 96374-59; 96375; 99285-25; A9270-GY; C1729; G0480; J0295; J0690; J1100; J1170; J1885; J2250; J2405; J3010; J7120; Q9967

== ENCOUNTER 2018-05-12 15:50 | Observation (INO) | payer OTHER ==
[~2018-05-12] VITALS: Ht 152.4 cm; Wt 49.0 kg
[~2018-05-12 15:50] MED LIST changes: +HYDR1TAB94 PO
[2018-05-12 16:22] LABS: BASOPHILS ABSOLUTE AUTO 0.04 K/mm3 (0.00-0.23); BASOPHILS PERCENT AUTO 1 % (0-2); EOSINOPHILS PERCENT AUTO 2 % (0-6); Hematocrit 41.6 % (33.0-51.0); Hemoglobin 14.1 g/dL (11.5-16.0); IMMATURE GRAN PERCENT AUTO 1 % (0-1); LYMPHOCYTES ABSOLUTE AUTO 2.35 K/mm3 (0.84-5.20); LYMPHOCYTES PERCENT AUTO 28 % (21-46); MONOCYTES ABSOLUTE AUTO 0.48 K/mm3 (0.16-1.47); MONOCYTES PERCENT AUTO 6 % (4-13); Mean Corpuscular HGB 32.3 pg (26.0-34.0); Mean Corpuscular HGB Conc 33.9 g/dL (31.5-36.5); Mean Corpuscular Volume 95 fL (80-100); Mean Platelet Volume 9.1 fL (9.1-12.4); NEUTROPHILS ABSOLUTE AUTO 5.21 K/mm3 (1.96-9.15); NEUTROPHILS PERCENT AUTO 62 % (41-73); Platelet Count 170 K/mm3 (150-400); Red Blood Cell Count 4.36 M/mm3 (3.80-5.20); White Blood Cell Count 8.38 K/mm3 (4.00-11.30)
[2018-05-12 16:46] LABS: Alanine Aminotransfer (ALT/SGP 29 U/L (12-78); Albumin, Blood 3.5 g/dL (3.4-5.0); Albumin/Globulin Ratio 0.8 (0.8-1.8); Alk Phos 121 U/L (50-136); Anion Gap 4 mmol/L (6-16); Aspartate Aminotrans (AST/SGOT 38 U/L (12-37); Bilirubin, Total 0.6 mg/dL (0.1-1.0); Blood Urea Nitrogen 8 mg/dL (8-24); Bun/Creatinine Ratio 20.5 (12.0-20.0); CO2, Blood 29 mmol/L (21-32); Calcium, Blood 8.5 mg/dL (8.5-10.1); Chloride, Blood 107 mmol/L (98-108); Creatinine, Blood 0.39 mg/dL (0.40-1.00); Globulin, Blood 4.5 g/dL (2.2-4.0); Glomerular Filtration Rate >60 (60-); Glucose, Blood 136 mg/dL (70-99); Potassium, Blood 3.7 mmol/L (3.5-5.5); Sodium, Blood 140 mmol/L (136-145)
[2018-05-12 17:15] LABS: Dilantin (Phenytoin), Total 2.6 ug/mL (10.0-20.0)
[2018-05-13 03:01] LABS: Source, Urine Clean Catch
[2018-05-13 03:05] LABS: Bilirubin, Urine Neg (Neg); Blood, Urine 4+ (Neg); Glucose Qualitative, Urine Neg (Neg); Ketones, Urine Neg (Neg); Leukocyte Esterase, Urine Neg (Neg); Nitrite, Urine Neg (Neg); Protein, Urine Neg (Neg); Urobilinogen, Urine NORM (Normal)
[2018-05-13 03:16] LABS: Appearance, Urine Clear (Clear); Color, Urine Pale Yellow (P-Yellow)
[2018-05-13 03:17] LABS: Bacteria Not Seen /hpf; Red Blood Cells, Urine 25-50 /hpf (0-2); Squamous Epithelial Cells Not Seen /hpf (Few); White Blood Cells, Urine Not Seen /hpf (0-5)
[2018-05-13 03:20] LABS: U Amphetamine Screen Not Detected; U Barbituate Screen DETECTED; U Benzodiazapine Screen DETECTED; U Buprenorphine Screen Not Detected; U Cannabinoids Screen DETECTED; U Cocaine Screen Not Detected; U Methadone Screen Not Detected; U Methamphetamine Screen Not Detected; U Opiates Screen Not Detected; U Oxycodone Screen Not Detected; U Phencyclidine Screen Not Detected; U Propoxyphene Screen Not Detected
[2018-05-13 05:06] LABS: Hematocrit 36.1 % (33.0-51.0); Hemoglobin 12.3 g/dL (11.5-16.0); Mean Corpuscular HGB 32.2 pg (26.0-34.0); Mean Corpuscular HGB Conc 34.1 g/dL (31.5-36.5); Mean Corpuscular Volume 95 fL (80-100); Mean Platelet Volume 9.2 fL (9.1-12.4); Platelet Count 150 K/mm3 (150-400); RDW Standard Deviation 44.6 fL (35.1-46.3); Red Blood Cell Count 3.82 M/mm3 (3.80-5.20); White Blood Cell Count 7.27 K/mm3 (4.00-11.30)
--- NOTE | 2018-05-13 05:48 | NUR ---
Rn summary: Patient was received from the ED in a W/C. Pt is angry and confused. Pt was combative when she first arrived and would not follow direction. She was wanting to leave. Pt was placed in vest restraint. She was very cooperative when security gaurds arrived to assist. Pt emotions have been very labile, angry, then crying then sleeping. Pt is confused to where she is and why she is here. Pt has been up to BSC several times. Moving easier as the shift progresses. Pt has large bruise RLQ from cholecytectomy in April. Pt did pull one iv out already this shift. Pt has been NPO. Pt receiving IV fluids. Call light in reach.
[2018-05-13 06:43] LABS: Alanine Aminotransfer (ALT/SGP 27 U/L (12-78); Albumin, Blood 3.3 g/dL (3.4-5.0); Albumin/Globulin Ratio 0.9 (0.8-1.8); Alk Phos 104 U/L (50-136); Anion Gap 4 mmol/L (6-16); Aspartate Aminotrans (AST/SGOT 32 U/L (12-37); Bilirubin, Total 0.5 mg/dL (0.1-1.0); Blood Urea Nitrogen 5 mg/dL (8-24); Bun/Creatinine Ratio 12.5 (12.0-20.0); CO2, Blood 29 mmol/L (21-32); Calcium, Blood 8.2 mg/dL (8.5-10.1); Chloride, Blood 109 mmol/L (98-108); Globulin, Blood 3.7 g/dL (2.2-4.0); Glomerular Filtration Rate >60 (60-); Glucose, Blood 93 mg/dL (70-99); Potassium, Blood 3.6 mmol/L (3.5-5.5); Sodium, Blood 142 mmol/L (136-145)
--- NOTE | 2018-05-13 11:16 | NUR ---
Dorota was alert, friendly and receptive to conversation and pastoral companionship. I established therapeutic trust, facilitated a life review exercise including a discussion about hobbies and interests, and provided soft acoustic guitar music with restrained vocal support for nostalgia, non-pharmaceutical encouragement, and agitation reduction. Dorota showed clear evidence of engagement, alireza and peacefulness and stress alleviation. She invited me to return soon. I very much appreciate this referral from the CARRY IN WORKER. Davion Erickson DMin
--- NOTE | 2018-05-13 16:27 | NUR ---
SHIFT SUMMARY PT HAS HAD NO ACUTE CHANGES THIS SHIFT, HAS NEEDED REGULAR RE-ORIENTATION T/O SHIFT, NO SEIZURES OR COMPLAINTS OF ANY KIND. SISTER VISTED THIS SHIFT, PT BEDRESTING AT THIS TIME, WILL CONT TO MONITOR UNTIL REPORT GIVEN TO ANTOINETTE KEY.
[2018-05-14 05:28] LABS: Dilantin (Phenytoin), Total 15.8 ug/mL (10.0-20.0); Valproic Acid 29.4 ug/mL (50.0-100.0)
--- NOTE | 2018-05-14 05:41 | NUR ---
Rn summary: Patient is alert and appropriate. Pt has been out of restraints all shift. Vest on for warmth per patient. No seizure activity noted. Pt did have a snack of 1/2 sandwich in the middle of the night. Pt denies pain and has rested well. Call light at bedside. Will continue to monitor.
--- NOTE | 2018-05-14 17:38 | NUR ---
PT WAS DISCHARGED AT 1737. THE PATIENT'S SISTER DROVE THE PATIENT HOME.
== END 2018-05-14 17:41 | disposition home or self-care (01) ==
LOC: ER 15:50 → MEDS 15:51
PROVIDERS: Emergency Medicine; Internal Medicine; ADMIT Internal Medicine
DX: G40.901 Epilepsy, unspecified, not intractable, with status epilepticus (principal); K74.60 Unspecified cirrhosis of liver; I10 Essential (primary) hypertension; I34.0 Nonrheumatic mitral (valve) insufficiency; I34.1 Nonrheumatic mitral (valve) prolapse; G30.9 Alzheimer's disease, unspecified; F02.80 Dementia in other diseases classified elsewhere, unspecified severity, without behavioral disturbance, psychotic disturbance, mood disturbance, and anxiety; D69.6 Thrombocytopenia, unspecified; G83.84 Todd's paralysis (postepileptic); F19.10 Other psychoactive substance abuse, uncomplicated; F17.200 Nicotine dependence, unspecified, uncomplicated; Z79.899 Other long term (current) drug therapy; Z90.49 Acquired absence of other specified parts of digestive tract
CPT/HCPCS: 36415; 70450; 80053; 80164; 80185; 81001; 83735; 85025; 85027; 93005; 93010; 96361; 96365; 96375; 99285-25; J1165; J1650; J2060; J2405; J7030; Q2009

== ENCOUNTER 2019-03-18 15:26 | Emergency (ER) | payer OTHER ==
[~2019-03-18] VITALS: Ht 160 cm; Wt 59.0 kg
[2019-03-18 16:27] LABS: BASOPHILS ABSOLUTE AUTO 0.03 K/mm3 (0.00-0.23); BASOPHILS PERCENT AUTO 1 % (0-2); EOSINOPHILS ABSOLUTE AUTO 0.19 K/mm3 (0.00-0.68); EOSINOPHILS PERCENT AUTO 4 % (0-6); Hematocrit 38.7 % (33.0-51.0); Hemoglobin 12.9 g/dL (11.5-16.0); IMMATURE GRAN ABSOLUTE AUTO 0.01 K/mm3 (0.00-0.10); IMMATURE GRAN PERCENT AUTO 0 % (0-1); LYMPHOCYTES ABSOLUTE AUTO 1.69 K/mm3 (0.84-5.20); LYMPHOCYTES PERCENT AUTO 34 % (21-46); MONOCYTES ABSOLUTE AUTO 0.51 K/mm3 (0.16-1.47); MONOCYTES PERCENT AUTO 10 % (4-13); Mean Corpuscular HGB Conc 33.3 g/dL (31.5-36.5); Mean Corpuscular Volume 96 fL (80-100); Mean Platelet Volume 8.9 fL (9.1-12.4); NEUTROPHILS ABSOLUTE AUTO 2.57 K/mm3 (1.96-9.15); NEUTROPHILS PERCENT AUTO 51 % (41-73); Platelet Count 114 K/mm3 (150-400); RDW Coefficient Variation 12.4 % (11.7-14.2); Red Blood Cell Count 4.03 M/mm3 (3.80-5.20)
[2019-03-18 16:34] LABS: Alanine Aminotransfer (ALT/SGP 116 U/L (12-78); Albumin, Blood 3.5 g/dL (3.4-5.0); Albumin/Globulin Ratio 0.9 (0.8-1.8); Alk Phos 157 U/L (50-136); Anion Gap 6 mmol/L (6-16); Aspartate Aminotrans (AST/SGOT 103 U/L (12-37); Bilirubin, Total 0.3 mg/dL (0.1-1.0); Blood Urea Nitrogen 10 mg/dL (8-24); Bun/Creatinine Ratio 18.4 (12.0-20.0); CO2, Blood 27 mmol/L (21-32); Calcium, Blood 8.5 mg/dL (8.5-10.1); Chloride, Blood 104 mmol/L (98-108); Creatinine, Blood 0.54 mg/dL (0.40-1.00); Glomerular Filtration Rate >60 (60-); Glucose, Blood 101 mg/dL (70-99); Potassium, Blood 4.1 mmol/L (3.5-5.5); Sodium, Blood 137 mmol/L (136-145); Total Protein, Blood 7.5 g/dL (6.4-8.2); Troponin I <0.015 ng/mL (0.000-0.040)
[2019-03-18] MEDS ORDERED: Ultram50 MG PO (17:53)
== END 2019-03-18 18:13 | disposition home or self-care (01) ==
LOC: ER 15:26
PROVIDERS: Physician Assistant
DX: S49.91XA Unspecified injury of right shoulder and upper arm, initial encounter (principal); F17.200 Nicotine dependence, unspecified, uncomplicated; Z79.899 Other long term (current) drug therapy; W10.9XXA Fall (on) (from) unspecified stairs and steps, initial encounter
CPT/HCPCS: 36415; 73030; 80053; 84484; 85025; 93005; 93010; 99284-25

== ENCOUNTER 2019-07-10 17:39 | Emergency (ER) | payer OTHER ==
[~2019-07-10] VITALS: Ht 157.5 cm; Wt 65.8 kg
[~2019-07-10 17:39] MED LIST changes: +CEPH500 PO; +Pepcid20 MG PO; +Ultram50 MG PO
[2019-07-10] MEDS ORDERED: DICL75ER PO (18:23)
[2019-07-10] MEDS ORDERED: CIME400 PO (18:23)
[2019-07-10] MEDS ORDERED: MIRT30 PO (18:24)
[2019-07-10] MEDS ORDERED: Seroquel Xr50 MG (18:25)
[2019-07-10 18:28] LABS: BASOPHILS ABSOLUTE AUTO 0.04 K/mm3 (0.00-0.23); BASOPHILS PERCENT AUTO 1 % (0-2); EOSINOPHILS ABSOLUTE AUTO 0.27 K/mm3 (0.00-0.68); EOSINOPHILS PERCENT AUTO 5 % (0-6); Hematocrit 36.1 % (33.0-51.0); Hemoglobin 12.8 g/dL (11.5-16.0); IMMATURE GRAN ABSOLUTE AUTO 0.04 K/mm3 (0.00-0.10); IMMATURE GRAN PERCENT AUTO 1 % (0-1); LYMPHOCYTES ABSOLUTE AUTO 1.83 K/mm3 (0.84-5.20); LYMPHOCYTES PERCENT AUTO 35 % (21-46); MONOCYTES PERCENT AUTO 10 % (4-13); Mean Corpuscular HGB 32.7 pg (26.0-34.0); Mean Corpuscular HGB Conc 35.5 g/dL (31.5-36.5); Mean Corpuscular Volume 92 fL (80-100); Mean Platelet Volume 8.6 fL (9.1-12.4); NEUTROPHILS PERCENT AUTO 48 % (41-73); Platelet Count 146 K/mm3 (150-400); RDW Coefficient Variation 11.9 % (11.7-14.2); RDW Standard Deviation 40.3 fL (35.1-46.3); Red Blood Cell Count 3.92 M/mm3 (3.80-5.20); White Blood Cell Count 5.18 K/mm3 (4.00-11.30)
[2019-07-10 19:01] LABS: Alanine Aminotransfer (ALT/SGP 59 U/L (12-78); Albumin, Blood 3.3 g/dL (3.4-5.0); Albumin/Globulin Ratio 0.8 (0.8-1.8); Alk Phos 168 U/L (50-136); Anion Gap 6 mmol/L (6-16); Aspartate Aminotrans (AST/SGOT 61 U/L (12-37); Bilirubin, Total 0.3 mg/dL (0.1-1.0); Blood Urea Nitrogen 13 mg/dL (8-24); Bun/Creatinine Ratio 21.6 (12.0-20.0); CO2, Blood 25 mmol/L (21-32); Calcium, Blood 8.8 mg/dL (8.5-10.1); Chloride, Blood 102 mmol/L (98-108); Dilantin (Phenytoin), Total 10.2 ug/mL (10.0-20.0); Ethanol (Alcohol), Blood, Med <3 mg/dL; Globulin, Blood 4.3 g/dL (2.2-4.0); Glomerular Filtration Rate >60 (60-); Glucose, Blood 98 mg/dL (70-99); Magnesium, Blood 2.2 mg/dL (1.6-2.4); Potassium, Blood 4.2 mmol/L (3.5-5.5); Sodium, Blood 133 mmol/L (136-145); Total Protein, Blood 7.6 g/dL (6.4-8.2)
[2019-07-10 19:28] LABS: U Amphetamine Screen Not Detected; U Barbituate Screen DETECTED; U Benzodiazapine Screen Not Detected; U Buprenorphine Screen Not Detected; U Cannabinoids Screen Not Detected; U Cocaine Screen Not Detected; U Methadone Screen Not Detected; U Methamphetamine Screen Not Detected; U Opiates Screen Not Detected; U Oxycodone Screen Not Detected; U Phencyclidine Screen Not Detected; U Propoxyphene Screen Not Detected
[2019-07-10] MEDS ORDERED: DIVA500EC PO (19:41)
== END 2019-07-10 21:16 | disposition home or self-care (01) ==
LOC: ER 17:39
PROVIDERS: Emergency Medicine
DX: G40.909 Epilepsy, unspecified, not intractable, without status epilepticus (principal); R41.82 Altered mental status, unspecified; Z79.899 Other long term (current) drug therapy; F17.210 Nicotine dependence, cigarettes, uncomplicated; G30.9 Alzheimer's disease, unspecified
CPT/HCPCS: 70450; 80053; 80164; 80185; 83735; 85025; 96360; 96361; 99285-25; G0480; J7030

== ENCOUNTER 2019-09-05 18:31 | Emergency (ER) | payer OTHER ==
[~2019-09-05] VITALS: Ht 172.7 cm; Wt 54.4 kg
[~2019-09-05 18:31] MED LIST changes: +CIME400 PO; +DICL75ER PO; +DIVA500EC PO; +MIRT30 PO; +Seroquel Xr50 MG
[2019-09-05] MEDS ORDERED: DONE5 PO (18:48)
[2019-09-05] MEDS ORDERED: DIVA250ER PO (18:50)
[2019-09-05 19:30] LABS: Calcium, Ionized (POC) 1.06 mmol/L (1.10-1.46); Chloride (POC) 98 mmol/L (98-108); Creatinine (POC) 0.6 mg/dL (0.6-1.0); Glucose (ISTAT POC) 159 mg/dL (70-99); Hemoglobin (POC) 12.9 g/dL (12.0-16.0); Potassium (POC) 3.9 mmol/L (3.5-5.5); Sodium (POC) 135 mmol/L (135-148); Total CO2 (POC) 23 mmol/L (21-32)
[2019-09-05 19:57] LABS: Dilantin (Phenytoin), Total 23.8 ug/mL (10.0-20.0); Valproic Acid 73.5 ug/mL (50.0-100.0)
== END 2019-09-05 20:52 | disposition home or self-care (01) ==
LOC: ER 18:31
PROVIDERS: Emergency Medicine
DX: G40.909 Epilepsy, unspecified, not intractable, without status epilepticus (principal); S09.90XA Unspecified injury of head, initial encounter; G30.9 Alzheimer's disease, unspecified; F02.80 Dementia in other diseases classified elsewhere, unspecified severity, without behavioral disturbance, psychotic disturbance, mood disturbance, and anxiety; Z79.899 Other long term (current) drug therapy; F17.210 Nicotine dependence, cigarettes, uncomplicated; W19.XXXA Unspecified fall, initial encounter
CPT/HCPCS: 36415; 70450; 80047; 80164; 80185; 85014; 99285-25

== ENCOUNTER 2020-12-12 16:12 | Emergency (ER) | payer OTHER ==
[~2020-12-12] VITALS: Ht 160 cm; Wt 68.0 kg
[2020-12-12 17:06] LABS: Anion Gap 3 mmol/L (6-16); Blood Urea Nitrogen 18 mg/dL (8-24); Bun/Creatinine Ratio 28.8 (12.0-20.0); CO2, Blood 26 mmol/L (21-32); Calcium, Blood 8.8 mg/dL (8.5-10.1); Chloride, Blood 107 mmol/L (98-108); Creatinine, Blood 0.62 mg/dL (0.40-1.00); Glomerular Filtration Rate >60 (60-); Glucose, Blood 94 mg/dL (70-99); Magnesium, Blood 2.1 mg/dL (1.6-2.4); Potassium, Blood 4.8 mmol/L (3.5-5.5); Sodium, Blood 136 mmol/L (136-145)
[2020-12-12] MEDS ORDERED: ACET500 PO (18:26)
[2020-12-12] MEDS ORDERED: IBUP400 PO (18:26)
[2020-12-12] MEDS ORDERED: Robaxin750 MG PO (18:26)
== END 2020-12-12 19:00 | disposition home or self-care (01) ==
LOC: ER 16:12
PROVIDERS: Student in an Organized Health Care Education/Training Program
DX: M62.838 Other muscle spasm (principal); F17.210 Nicotine dependence, cigarettes, uncomplicated; Z79.899 Other long term (current) drug therapy
CPT/HCPCS: 80048; 82330; 83735; 96365; 96368; 96375; 99284-25; A9270; J0610; J1885; J3475

== ENCOUNTER → 2020-12-24 | Outpatient (CLI) | payer OTHER ==
[~2020-12-24] MED LIST changes: +ACET500 PO; +IBUP400 PO; +Robaxin750 MG PO
== END | disposition home or self-care (01) ==
LOC: LAB SHORT 12:17
DX: M79.661 Pain in right lower leg (principal)
CPT/HCPCS: 85379

== ENCOUNTER 2021-02-16 14:21 | Emergency (ER) | payer OTHER ==
[~2021-02-16] VITALS: Ht 170.2 cm; Wt 65.8 kg
[~2021-02-16 14:21] MED LIST changes: -Seroquel Xr50 MG; +Seroquel Xr50 MG PO
[2021-02-16] MEDS ORDERED: CALCIUM MAGNES1 EAC1 PO (14:42)
[2021-02-16] MEDS ORDERED: Aspir 8181 MG PO (14:42)
[2021-02-16 15:10] LABS: Alanine Aminotransfer (ALT/SGP 61 U/L (12-78); Albumin, Blood 3.5 g/dL (3.4-5.0); Albumin/Globulin Ratio 0.8 (0.8-1.8); Alk Phos 129 U/L (50-136); Anion Gap 3 mmol/L (6-16); Aspartate Aminotrans (AST/SGOT 65 U/L (12-37); Bilirubin, Total 0.4 mg/dL (0.1-1.0); Blood Urea Nitrogen 13 mg/dL (8-24); Bun/Creatinine Ratio 20.7 (12.0-20.0); CO2, Blood 27 mmol/L (21-32); Calcium, Blood 8.5 mg/dL (8.5-10.1); Chloride, Blood 104 mmol/L (98-108); Creatinine, Blood 0.63 mg/dL (0.40-1.00); Dilantin (Phenytoin), Total 6.7 ug/mL (10.0-20.0); Globulin, Blood 4.2 g/dL (2.2-4.0); Glomerular Filtration Rate >60 (60-); Glucose, Blood 97 mg/dL (70-99); Potassium, Blood 4.3 mmol/L (3.5-5.5); Sodium, Blood 134 mmol/L (136-145); Total Protein, Blood 7.7 g/dL (6.4-8.2); Troponin I <0.015 ng/mL (0.000-0.040); Valproic Acid 78.3 ug/mL (50.0-100.0)
[2021-02-16] MEDS ORDERED: VITAMIN D310 MC4 PO (15:14)
[2021-02-16] MEDS ORDERED: DIVA250ER PO (15:15)
[2021-02-16] MEDS ORDERED: TRAZ50 PO (15:16)
[2021-02-16 15:57] LABS: Influenza A, PCR NEGATIVE (NEGATIVE); Influenza B, PCR NEGATIVE (NEGATIVE); Resp Syncytial Virus, PCR NEGATIVE (NEGATIVE); SARS-Cov-2 (COVID-19) PCR, MMC NEGATIVE (NEGATIVE)
== END 2021-02-16 20:32 | disposition home or self-care (01) ==
LOC: ER 14:21
PROVIDERS: Emergency Medicine
DX: G40.909 Epilepsy, unspecified, not intractable, without status epilepticus (principal); Z20.822 Contact with and (suspected) exposure to COVID-19; Z79.899 Other long term (current) drug therapy; F17.210 Nicotine dependence, cigarettes, uncomplicated
CPT/HCPCS: 0241U; 36415; 80053; 80164; 80185; 84484; 93005; 93010; J1165; J7030

== ENCOUNTER 2021-06-03 13:59 | Emergency (ER) | payer OTHER ==
[~2021-06-03] VITALS: Ht 165.1 cm; Wt 68.0 kg
[~2021-06-03 13:59] MED LIST changes: +Aspir 8181 MG PO; +CALCIUM MAGNES1 EAC1 PO; +VITAMIN D310 MC4 PO
[2021-06-03 15:05] LABS: BASOPHILS ABSOLUTE AUTO 0.02 K/mm3 (0.00-0.23); BASOPHILS PERCENT AUTO 1 % (0-2); EOSINOPHILS ABSOLUTE AUTO 0.13 K/mm3 (0.00-0.68); EOSINOPHILS PERCENT AUTO 3 % (0-6); Hematocrit 35.7 % (33.0-51.0); IMMATURE GRAN ABSOLUTE AUTO 0.01 K/mm3 (0.00-0.10); IMMATURE GRAN PERCENT AUTO 0 % (0-1); LYMPHOCYTES PERCENT AUTO 42 % (21-46); MONOCYTES ABSOLUTE AUTO 0.34 K/mm3 (0.16-1.47); MONOCYTES PERCENT AUTO 8 % (4-13); Mean Corpuscular HGB 33.8 pg (26.0-34.0); Mean Corpuscular HGB Conc 36.4 g/dL (31.5-36.5); Mean Corpuscular Volume 93 fL (80-100); Mean Platelet Volume 9.5 fL (9.1-12.4); NEUTROPHILS ABSOLUTE AUTO 1.86 K/mm3 (1.96-9.15); NEUTROPHILS PERCENT AUTO 46 % (41-73); Platelet Count 54 K/mm3 (150-400); RDW Coefficient Variation 11.9 % (11.7-14.2); Red Blood Cell Count 3.85 M/mm3 (3.80-5.20); White Blood Cell Count 4.06 K/mm3 (4.00-11.30)
[2021-06-03 15:43] LABS: Alanine Aminotransfer (ALT/SGP 51 U/L (12-78); Albumin, Blood 3.1 g/dL (3.4-5.0); Albumin/Globulin Ratio 0.7 (0.8-1.8); Alk Phos 121 U/L (50-136); Anion Gap 4 mmol/L (6-16); Aspartate Aminotrans (AST/SGOT 59 U/L (12-37); Bilirubin, Total 0.5 mg/dL (0.1-1.0); Blood Urea Nitrogen 12 mg/dL (8-24); Bun/Creatinine Ratio 18.8 (12.0-20.0); CO2, Blood 28 mmol/L (21-32); Calcium, Blood 8.3 mg/dL (8.5-10.1); Chloride, Blood 99 mmol/L (98-108); Creatinine, Blood 0.64 mg/dL (0.40-1.00); Dilantin (Phenytoin), Total 26.1 ug/mL (10.0-20.0); Globulin, Blood 4.2 g/dL (2.2-4.0); Glomerular Filtration Rate >60 (60-); Glucose, Blood 96 mg/dL (70-99); Potassium, Blood 4.5 mmol/L (3.5-5.5); Sodium, Blood 131 mmol/L (136-145); Total Protein, Blood 7.3 g/dL (6.4-8.2); Valproic Acid 85.5 ug/mL (50.0-100.0)
[2021-06-03 16:13] LABS: Source, Urine Voided
[2021-06-03 16:22] LABS: Appearance, Urine Clear (Clear); Bilirubin, Urine Neg (Neg); Blood, Urine Neg (Neg); Glucose Qualitative, Urine Neg (Neg); Ketones, Urine Neg (Neg); Leukocyte Esterase, Urine Neg (Neg); Nitrite, Urine Neg (Neg); Protein, Urine Neg (Neg); Urobilinogen, Urine NORM (Normal)
[2021-06-03 16:36] LABS: Color, Urine Pale Yellow (P-Yellow)
== END 2021-06-03 19:15 | disposition home or self-care (01) ==
LOC: ER 13:59
PROVIDERS: Emergency Medicine
DX: R42 Dizziness and giddiness (principal); T42.0X5A Adverse effect of hydantoin derivatives, initial encounter; R51.9 Headache, unspecified; G30.0 Alzheimer's disease with early onset; F02.80 Dementia in other diseases classified elsewhere, unspecified severity, without behavioral disturbance, psychotic disturbance, mood disturbance, and anxiety; F17.210 Nicotine dependence, cigarettes, uncomplicated; Z79.899 Other long term (current) drug therapy
CPT/HCPCS: 36415; 70450; 70551; 80053; 80164; 80185; 81003; 84484; 85025; A9270; J1885; J2550

== ENCOUNTER 2021-06-05 19:09 | Emergency (ER) | payer OTHER ==
[~2021-06-05] VITALS: Ht 167.6 cm; Wt 68.0 kg
== END 2021-06-05 21:41 | disposition home or self-care (01) ==
LOC: ER 19:09
DX: S09.90XA Unspecified injury of head, initial encounter (principal); F17.210 Nicotine dependence, cigarettes, uncomplicated; Z79.899 Other long term (current) drug therapy; W06.XXXA Fall from bed, initial encounter
CPT/HCPCS: 99283

== ENCOUNTER 2021-10-25 09:07 | Emergency (ER) | payer OTHER ==
[~2021-10-25] VITALS: Ht 160 cm; Wt 59.0 kg
[2021-10-25] MEDS ORDERED: GABA100 PO (11:03)
[2021-10-25] MEDS ORDERED: Lisinopril2.5 MG PO (11:03)
[2021-10-25 12:12] LABS: BASOPHILS ABSOLUTE AUTO 0.02 K/mm3 (0.00-0.23); BASOPHILS PERCENT AUTO 1 % (0-2); EOSINOPHILS ABSOLUTE AUTO 0.14 K/mm3 (0.00-0.68); EOSINOPHILS PERCENT AUTO 4 % (0-6); Hematocrit 35.1 % (33.0-51.0); Hemoglobin 12.3 g/dL (11.5-16.0); IMMATURE GRAN PERCENT AUTO 0 % (0-1); LYMPHOCYTES ABSOLUTE AUTO 1.27 K/mm3 (0.84-5.20); LYMPHOCYTES PERCENT AUTO 34 % (21-46); MONOCYTES ABSOLUTE AUTO 0.36 K/mm3 (0.16-1.47); MONOCYTES PERCENT AUTO 10 % (4-13); Mean Corpuscular HGB 33.8 pg (26.0-34.0); Mean Corpuscular Volume 96 fL (80-100); Mean Platelet Volume 10.2 fL (9.1-12.4); NEUTROPHILS ABSOLUTE AUTO 1.95 K/mm3 (1.96-9.15); NEUTROPHILS PERCENT AUTO 52 % (41-73); Platelet Count 68 K/mm3 (150-400); RDW Coefficient Variation 12.4 % (11.7-14.2); RDW Standard Deviation 44.4 fL (35.1-46.3); Red Blood Cell Count 3.64 M/mm3 (3.80-5.20); White Blood Cell Count 3.74 K/mm3 (4.00-11.30)
[2021-10-25 12:31] LABS: Albumin, Blood 3.2 g/dL (3.4-5.0); Albumin/Globulin Ratio 0.9 (0.8-1.8); Bilirubin, Total 0.5 mg/dL (0.1-1.0); Calcium, Blood 8.7 mg/dL (8.5-10.1); Creatinine, Blood 0.62 mg/dL (0.40-1.00); Globulin, Blood 3.6 g/dL (2.2-4.0); Potassium, Blood 4.1 mmol/L (3.5-5.5); Total Protein, Blood 6.8 g/dL (6.4-8.2)
[2021-10-25] MEDS ORDERED: CYCL10 PO (13:12)
== END 2021-10-25 13:35 | disposition home or self-care (01) ==
LOC: ER 09:07
PROVIDERS: Student in an Organized Health Care Education/Training Program
DX: M79.604 Pain in right leg (principal); M79.605 Pain in left leg; F17.210 Nicotine dependence, cigarettes, uncomplicated; Z79.82 Long term (current) use of aspirin; Z79.899 Other long term (current) drug therapy
CPT/HCPCS: 80053; 85025; 93922; A9270; J1885

== ENCOUNTER 2021-12-03 10:59 | Emergency (ER) | payer OTHER ==
[~2021-12-03] VITALS: Ht 167.6 cm; Wt 68.0 kg
[~2021-12-03 10:59] MED LIST changes: +CYCL10 PO; +GABA100 PO; +Lisinopril2.5 MG PO
[2021-12-03 11:41] LABS: BASOPHILS ABSOLUTE AUTO 0.03 K/mm3 (0.00-0.23); BASOPHILS PERCENT AUTO 1 % (0-2); EOSINOPHILS ABSOLUTE AUTO 0.07 K/mm3 (0.00-0.68); EOSINOPHILS PERCENT AUTO 1 % (0-6); Hematocrit 38.3 % (33.0-51.0); Hemoglobin 13.4 g/dL (11.5-16.0); IMMATURE GRAN ABSOLUTE AUTO 0.05 K/mm3 (0.00-0.10); IMMATURE GRAN PERCENT AUTO 1 % (0-1); LYMPHOCYTES ABSOLUTE AUTO 0.71 K/mm3 (0.84-5.20); LYMPHOCYTES PERCENT AUTO 12 % (21-46); MONOCYTES ABSOLUTE AUTO 0.44 K/mm3 (0.16-1.47); MONOCYTES PERCENT AUTO 7 % (4-13); Mean Corpuscular HGB 32.8 pg (26.0-34.0); Mean Corpuscular Volume 94 fL (80-100); Mean Platelet Volume 9.4 fL (9.1-12.4); NEUTROPHILS ABSOLUTE AUTO 4.74 K/mm3 (1.96-9.15); NEUTROPHILS PERCENT AUTO 78 % (41-73); Platelet Count 93 K/mm3 (150-400); RDW Coefficient Variation 13.2 % (11.7-14.2); RDW Standard Deviation 45.2 fL (35.1-46.3); Red Blood Cell Count 4.08 M/mm3 (3.80-5.20); White Blood Cell Count 6.04 K/mm3 (4.00-11.30)
[2021-12-03 12:01] LABS: Bun/Creatinine Ratio 25.5 (12.0-20.0); Calcium, Blood 8.6 mg/dL (8.5-10.1); Creatinine, Blood 0.71 mg/dL (0.40-1.00); Potassium, Blood 3.6 mmol/L (3.5-5.5)
[2021-12-03 12:03] LABS: Valproic Acid 60.4 ug/mL (50.0-100.0)
[2021-12-03 12:10] LABS: Source, Urine Straight Cath
[2021-12-03 12:14] LABS: Bilirubin, Urine Neg (Neg); Blood, Urine Neg (Neg); Glucose Qualitative, Urine Neg (Neg); Ketones, Urine 1+ (Neg); Leukocyte Esterase, Urine 1+ (Neg); Nitrite, Urine Neg (Neg); Protein, Urine 2+ (Neg); Specific Gravity, Urine 1.015 (1.003-1.022); Urobilinogen, Urine 1+ (Normal); pH, Urine 6.5 (5.0-8.0)
[2021-12-03 12:25] LABS: Appearance, Urine Hazy (Clear); Bacteria Few /hpf; Color, Urine Yellow (P-Yellow); Red Blood Cells, Urine Not Seen /hpf (0-2); Squamous Epithelial Cells Few /hpf (Few)
[2021-12-03] MEDS ORDERED: QUET25 PO (12:39)
[2021-12-03 14:57] LABS: Dilantin (Phenytoin), Total 2.7 ug/mL (10.0-20.0)
== END 2021-12-03 17:11 | disposition home or self-care (01) ==
LOC: ER 10:59
PROVIDERS: Student in an Organized Health Care Education/Training Program
DX: G40.909 Epilepsy, unspecified, not intractable, without status epilepticus (principal); R89.2 Abnormal level of other drugs, medicaments and biological substances in specimens from other organs, systems and tissues; G30.0 Alzheimer's disease with early onset; F02.80 Dementia in other diseases classified elsewhere, unspecified severity, without behavioral disturbance, psychotic disturbance, mood disturbance, and anxiety; G83.84 Todd's paralysis (postepileptic); F17.210 Nicotine dependence, cigarettes, uncomplicated; Z79.899 Other long term (current) drug therapy
CPT/HCPCS: 70450; 80048; 80164; 80185; 81001; 84146; 85025; 87077; 87086; 87186; 93005; 93010; J1165; J1885; J2060; J2765; J7030; J7120; P9612

== ENCOUNTER → 2022-04-09 | Outpatient (CLI) | payer OTHER ==
[~2022-04-09] MED LIST changes: +QUET25 PO
[2022-04-09 12:36] LABS: BASOPHILS ABSOLUTE AUTO 0.05 K/mm3 (0.00-0.23); BASOPHILS PERCENT AUTO 1 % (0-2); EOSINOPHILS ABSOLUTE AUTO 0.35 K/mm3 (0.00-0.68); EOSINOPHILS PERCENT AUTO 7 % (0-6); Hematocrit 40.1 % (33.0-51.0); Hemoglobin 14.2 g/dL (11.5-16.0); IMMATURE GRAN ABSOLUTE AUTO 0.03 K/mm3 (0.00-0.10); IMMATURE GRAN PERCENT AUTO 1 % (0-1); LYMPHOCYTES ABSOLUTE AUTO 1.83 K/mm3 (0.84-5.20); LYMPHOCYTES PERCENT AUTO 35 % (21-46); MONOCYTES ABSOLUTE AUTO 0.44 K/mm3 (0.16-1.47); MONOCYTES PERCENT AUTO 8 % (4-13); Mean Corpuscular HGB 32.6 pg (26.0-34.0); Mean Corpuscular HGB Conc 35.4 g/dL (31.5-36.5); Mean Corpuscular Volume 92 fL (80-100); Mean Platelet Volume 9.4 fL (9.1-12.4); NEUTROPHILS ABSOLUTE AUTO 2.57 K/mm3 (1.96-9.15); NEUTROPHILS PERCENT AUTO 49 % (41-73); Platelet Count 124 K/mm3 (150-400); RDW Coefficient Variation 13.5 % (11.7-14.2); RDW Standard Deviation 46.1 fL (35.1-46.3); Red Blood Cell Count 4.35 M/mm3 (3.80-5.20); White Blood Cell Count 5.27 K/mm3 (4.00-11.30)
[2022-04-09 12:58] LABS: Albumin, Blood 3.3 g/dL (3.4-5.0); Albumin/Globulin Ratio 0.6 (0.8-1.8); Bilirubin, Total 0.7 mg/dL (0.1-1.0); Bun/Creatinine Ratio 14.7 (12.0-20.0); Calcium, Blood 9.3 mg/dL (8.5-10.1); Creatinine, Blood 0.75 mg/dL (0.40-1.00); Globulin, Blood 5.2 g/dL (2.2-4.0); Potassium, Blood 4.5 mmol/L (3.5-5.5); Total Protein, Blood 8.5 g/dL (6.4-8.2)
== END | disposition home or self-care (01) ==
LOC: LAB SHORT 08:30 → LAB 08:30
PROVIDERS: Registered Nurse Oncology
DX: D70.9 Neutropenia, unspecified (principal); D69.6 Thrombocytopenia, unspecified; B18.2 Chronic viral hepatitis C
CPT/HCPCS: 80053; 85025

== ENCOUNTER 2022-11-11 13:27 | Emergency (ER) | payer OTHER ==
[~2022-11-11] VITALS: Ht 160 cm; Wt 68.0 kg
[2022-11-11 14:37] LABS: BASOPHILS ABSOLUTE AUTO 0.02 K/mm3 (0.00-0.23); BASOPHILS PERCENT AUTO 1 % (0-2); EOSINOPHILS ABSOLUTE AUTO 0.19 K/mm3 (0.00-0.68); EOSINOPHILS PERCENT AUTO 5 % (0-6); Hematocrit 37.8 % (33.0-51.0); Hemoglobin 13.3 g/dL (11.5-16.0); IMMATURE GRAN ABSOLUTE AUTO 0.01 K/mm3 (0.00-0.10); IMMATURE GRAN PERCENT AUTO 0 % (0-1); LYMPHOCYTES ABSOLUTE AUTO 1.35 K/mm3 (0.84-5.20); LYMPHOCYTES PERCENT AUTO 39 % (21-46); MONOCYTES ABSOLUTE AUTO 0.43 K/mm3 (0.16-1.47); MONOCYTES PERCENT AUTO 12 % (4-13); Mean Corpuscular HGB 32.2 pg (26.0-34.0); Mean Corpuscular HGB Conc 35.2 g/dL (31.5-36.5); Mean Corpuscular Volume 92 fL (80-100); Mean Platelet Volume 8.9 fL (9.1-12.4); NEUTROPHILS PERCENT AUTO 43 % (41-73); Platelet Count 65 K/mm3 (150-400); RDW Coefficient Variation 12.5 % (11.7-14.2); RDW Standard Deviation 41.6 fL (35.1-46.3); Red Blood Cell Count 4.13 M/mm3 (3.80-5.20)
[2022-11-11 15:30] LABS: Potassium, Blood 4.3 mmol/L (3.5-5.5)
[2022-11-11 15:31] LABS: Albumin, Blood 3.3 g/dL (3.4-5.0); Albumin/Globulin Ratio 0.8 (0.8-1.8); Bilirubin, Total 0.4 mg/dL (0.1-1.0); Bun/Creatinine Ratio 18.8 (12.0-20.0); Calcium, Blood 8.6 mg/dL (8.5-10.1); Creatinine, Blood 0.64 mg/dL (0.40-1.00); Globulin, Blood 4.3 g/dL (2.2-4.0); Total Protein, Blood 7.6 g/dL (6.4-8.2)
[2022-11-11 17:13] VITALS: BP 156/100
== END 2022-11-11 18:10 | disposition home or self-care (01) ==
LOC: ER 13:27
PROVIDERS: Physician Assistant
DX: R55 Syncope and collapse (principal); R42 Dizziness and giddiness; B18.2 Chronic viral hepatitis C; F17.210 Nicotine dependence, cigarettes, uncomplicated; Z79.899 Other long term (current) drug therapy
CPT/HCPCS: 80053; 85025; 93005; 93010; 99284-25

== ENCOUNTER 2022-12-17 13:47 | Emergency (ER) | payer OTHER ==
[~2022-12-17] VITALS: Ht 160 cm; Wt 63.5 kg
[2022-12-17 15:06] LABS: BASOPHILS ABSOLUTE AUTO 0.04 K/mm3 (0.00-0.23); BASOPHILS PERCENT AUTO 1 % (0-2); EOSINOPHILS ABSOLUTE AUTO 0.34 K/mm3 (0.00-0.68); EOSINOPHILS PERCENT AUTO 7 % (0-6); Hematocrit 34.6 % (33.0-51.0); Hemoglobin 12.3 g/dL (11.5-16.0); IMMATURE GRAN ABSOLUTE AUTO 0.04 K/mm3 (0.00-0.10); IMMATURE GRAN PERCENT AUTO 1 % (0-1); LYMPHOCYTES ABSOLUTE AUTO 1.67 K/mm3 (0.84-5.20); LYMPHOCYTES PERCENT AUTO 37 % (21-46); MONOCYTES ABSOLUTE AUTO 0.56 K/mm3 (0.16-1.47); MONOCYTES PERCENT AUTO 12 % (4-13); Mean Corpuscular HGB 32.8 pg (26.0-34.0); Mean Corpuscular HGB Conc 35.5 g/dL (31.5-36.5); Mean Corpuscular Volume 92 fL (80-100); NEUTROPHILS ABSOLUTE AUTO 1.93 K/mm3 (1.96-9.15); NEUTROPHILS PERCENT AUTO 42 % (41-73); Platelet Count 118 K/mm3 (150-400); RDW Coefficient Variation 13.7 % (11.7-14.2); RDW Standard Deviation 46.3 fL (35.1-46.3); Red Blood Cell Count 3.75 M/mm3 (3.80-5.20); White Blood Cell Count 4.58 K/mm3 (4.00-11.30)
[2022-12-17 15:32] LABS: Albumin, Blood 3.1 g/dL (3.4-5.0); Albumin/Globulin Ratio 0.7 (0.8-1.8); Bilirubin, Total 0.4 mg/dL (0.1-1.0); Bun/Creatinine Ratio 15.5 (12.0-20.0); Creatinine, Blood 0.77 mg/dL (0.40-1.00); Globulin, Blood 4.4 g/dL (2.2-4.0); Potassium, Blood 4.2 mmol/L (3.5-5.5); Total Protein, Blood 7.5 g/dL (6.4-8.2)
[2022-12-17 16:17] LABS: Magnesium, Blood 1.8 mg/dL (1.6-2.4)
[2022-12-17 17:30] VITALS: BP 162/97
[2022-12-17] MEDS ORDERED: FAMO20 PO (18:52)
[2022-12-17] MEDS ORDERED: ONDA4ODT MM (18:52)
== END 2022-12-17 19:30 | disposition home or self-care (01) ==
LOC: ER 13:47
PROVIDERS: Emergency Medicine; Student in an Organized Health Care Education/Training Program
DX: R10.13 Epigastric pain (principal); R51.9 Headache, unspecified; R11.0 Nausea; F17.210 Nicotine dependence, cigarettes, uncomplicated; G30.0 Alzheimer's disease with early onset; F02.80 Dementia in other diseases classified elsewhere, unspecified severity, without behavioral disturbance, psychotic disturbance, mood disturbance, and anxiety; F31.9 Bipolar disorder, unspecified; G40.901 Epilepsy, unspecified, not intractable, with status epilepticus; Z79.899 Other long term (current) drug therapy
CPT/HCPCS: 71046; 80053; 83690; 83735; 84484; 85025; 93005; 93010; 96360; 99284-25; A9270; J7030

== ENCOUNTER 2023-02-16 13:35 | Emergency (ER) | payer OTHER ==
[~2023-02-16] VITALS: Ht 160 cm; Wt 65.8 kg
[~2023-02-16 13:35] MED LIST changes: +ONDA4ODT MM
[2023-02-16 16:15] VITALS: BP 134/94
== END 2023-02-16 18:00 | disposition home or self-care (01) ==
LOC: ER 13:35
DX: S09.90XA Unspecified injury of head, initial encounter (principal); Y04.2XXA Assault by strike against or bumped into by another person, initial encounter; G30.0 Alzheimer's disease with early onset; F02.80 Dementia in other diseases classified elsewhere, unspecified severity, without behavioral disturbance, psychotic disturbance, mood disturbance, and anxiety; Z79.899 Other long term (current) drug therapy; F17.210 Nicotine dependence, cigarettes, uncomplicated
CPT/HCPCS: 99283; A9270

== ENCOUNTER → 2023-02-24 | Outpatient (CLI) | payer OTHER ==
[2023-02-25 13:26] LABS: Source, Urine Clean Catch
[2023-02-25 14:17] LABS: Appearance, Urine Clear (Clear); Bilirubin, Urine Neg (Neg); Blood, Urine Neg (Neg); Color, Urine Yellow (P-Yellow); Glucose Qualitative, Urine Neg (Neg); Ketones, Urine 1+ (Neg); Leukocyte Esterase, Urine Neg (Neg); Nitrite, Urine Neg (Neg); Protein, Urine 1+ (Neg); Urobilinogen, Urine 3+ (Normal)
[2023-02-25 14:45] LABS: U Amphetamine Screen Not Detected; U Barbituate Screen DETECTED; U Cannabinoids Screen DETECTED
[2023-02-25 14:46] LABS: U Benzodiazapine Screen Not Detected; U Buprenorphine Screen Not Detected; U Cocaine Screen Not Detected; U Methadone Screen Not Detected; U Methamphetamine Screen Not Detected; U Opiates Screen Not Detected; U Oxycodone Screen Not Detected; U Phencyclidine Screen Not Detected
== END ==
LOC: LAB 14:30 → LAB SHORT 14:30
PROVIDERS: Student in an Organized Health Care Education/Training Program
DX: B18.2 Chronic viral hepatitis C (principal); F03.90 Unspecified dementia, unspecified severity, without behavioral disturbance, psychotic disturbance, mood disturbance, and anxiety

== ENCOUNTER → 2023-03-02 | Outpatient (CLI) | payer OTHER | LOC: LAB SHORT 07:36 → LAB 07:36 | DX: B35.1 Tinea unguium (principal); L60.2 Onychogryphosis | CPT/HCPCS: 88305; 88312 ==

== ENCOUNTER → 2023-07-29 | Outpatient (CLI) | payer OTHER ==
[2023-07-29 10:51] LABS: Dilantin (Phenytoin), Total 5.5 ug/mL (10.0-20.0); Valproic Acid 77.1 ug/mL (50.0-100.0)
== END ==
LOC: LAB 09:28 → LAB SHORT 09:28
PROVIDERS: Student in an Organized Health Care Education/Training Program
DX: Z51.81 Encounter for therapeutic drug level monitoring (principal); F44.5 Conversion disorder with seizures or convulsions
CPT/HCPCS: 80164; 80185

== ENCOUNTER → 2023-08-12 | Outpatient (CLI) | payer OTHER ==
[2023-08-12 13:27] LABS: Dilantin (Phenytoin), Total 9.3 ug/mL (10.0-20.0)
== END ==
LOC: LAB 11:11 → LAB SHORT 11:11
PROVIDERS: Family Medicine
DX: G40.909 Epilepsy, unspecified, not intractable, without status epilepticus (principal)
CPT/HCPCS: 80185

== ENCOUNTER 2023-08-26 10:22 | Emergency (ER) | payer OTHER ==
[~2023-08-26] VITALS: Ht 157.5 cm; Wt 54.4 kg
[2023-08-26] MEDS ORDERED: Lactated Ringer's 1,000 ML IV ONE ×2 (10:25→11:15)
[2023-08-26 10:40] VITALS: BP 145/87
[2023-08-26 11:22] LABS: BASOPHILS ABSOLUTE AUTO 0.02 K/mm3 (0.00-0.23); BASOPHILS PERCENT AUTO 1 % (0-2); EOSINOPHILS ABSOLUTE AUTO 0.25 K/mm3 (0.00-0.68); EOSINOPHILS PERCENT AUTO 6 % (0-6); Hematocrit 37.5 % (33.0-51.0); Hemoglobin 12.9 g/dL (11.5-16.0); IMMATURE GRAN ABSOLUTE AUTO 0.02 K/mm3 (0.00-0.10); IMMATURE GRAN PERCENT AUTO 1 % (0-1); LYMPHOCYTES PERCENT AUTO 38 % (21-46); MONOCYTES ABSOLUTE AUTO 0.51 K/mm3 (0.16-1.47); MONOCYTES PERCENT AUTO 13 % (4-13); Mean Corpuscular HGB 33.5 pg (26.0-34.0); Mean Corpuscular HGB Conc 34.4 g/dL (31.5-36.5); Mean Corpuscular Volume 97 fL (80-100); Mean Platelet Volume 8.3 fL (9.1-12.4); NEUTROPHILS ABSOLUTE AUTO 1.68 K/mm3 (1.96-9.15); NEUTROPHILS PERCENT AUTO 42 % (41-73); Platelet Count 66 K/mm3 (150-400); RDW Coefficient Variation 13.2 % (11.7-14.2); RDW Standard Deviation 47.4 fL (35.1-46.3); Red Blood Cell Count 3.85 M/mm3 (3.80-5.20); White Blood Cell Count 3.98 K/mm3 (4.00-11.30)
[2023-08-26 11:36] LABS: Albumin, Blood 3.1 g/dL (3.4-5.0); Albumin/Globulin Ratio 0.7 (0.8-1.8); Bilirubin, Total 0.7 mg/dL (0.1-1.0); Bun/Creatinine Ratio 18.8 (12.0-20.0); Creatinine, Blood 0.8 mg/dL (0.40-1.00); Globulin, Blood 4.4 g/dL (2.2-4.0); Potassium, Blood 4.3 mmol/L (3.5-5.5); Total Protein, Blood 7.5 g/dL (6.4-8.2)
== END 2023-08-26 12:28 ==
LOC: ER 10:22
PROVIDERS: Emergency Medicine
DX: B34.9 Viral infection, unspecified (principal); F17.200 Nicotine dependence, unspecified, uncomplicated; Z79.899 Other long term (current) drug therapy
CPT/HCPCS: 36415; 80053; 85025; 99285-25; J7120

== ENCOUNTER 2023-09-02 02:08 | Emergency (ER) | payer OTHER ==
[~2023-09-02] VITALS: Ht 160 cm; Wt 68.0 kg
[2023-09-02 03:30] VITALS: BP 132/91
== END 2023-09-02 05:04 | disposition home or self-care (01) ==
LOC: ER 02:08
DX: S09.90XA Unspecified injury of head, initial encounter (principal); F17.200 Nicotine dependence, unspecified, uncomplicated; W06.XXXA Fall from bed, initial encounter; Z79.899 Other long term (current) drug therapy
CPT/HCPCS: 70450; 72125; 73552; 99285-25